=== PATIENT | female | born 1925 | race Caucasian/White ===

== ENCOUNTER 2016-10-10 11:57 | Inpatient (IN) | payer OTHER ==
[2016-10-09 22:29] VITALS: BP 114/63
[~2016-10-10] VITALS: Ht 147.3 cm; Wt 49.6 kg
[2016-10-10] MEDS ORDERED: PANTOPRAZOLE SODIUM 40 MG/10 ML VIAL IV STA (12:07)
[2016-10-10] MEDS ORDERED: SODIUM CHLORIDE 0.9% 500 ML IVB ONE (12:07)
[2016-10-10] MEDS ORDERED: MORPHINE SULFATE 4 MG/ML SYRG IV ONE (12:15)
[2016-10-10] MEDS ORDERED: ONDANSETRON HCL 4 MG/2 ML VIAL IV ONE (12:15)
[2016-10-10 13:24] LABS: Basophils # (auto) 0 uL; Eosinophils # (auto) 0 uL; Hematocrit 47.5 % (36.0-46.0); Hemoglobin 15.7 g/dL (12.2-16.2); Lymphocytes % (auto) 7.5 % (10.0-50.0); Mean Corpuscular Hemoglobin 31.8 pg (28.0-32.0); Mean Corpuscular Volume 96.1 fL (80.0-100.0); Mean Platelet Volume 7.5 fL (7.4-10.4); Monocytes # (auto) 0.8 uL; Monocytes % (auto) 6.1 % (0.0-12.0); Neutrophils % (auto) 86.4 % (37.0-80.0); Platelet Count (auto) 271 10^3/uL (140-450); White Blood Cell 12.8 10^3/uL (4.4-10.8)
[2016-10-10 13:47] LABS: Albumin 3.8 g/dL (3.4-5.0); Bilirubin, Total 0.9 mg/dL (0.2-1.0); Calcium 9.4 mg/dL (8.5-10.1); Magnesium 2.4 mg/dL (1.6-2.6); Potassium 4.2 mmol/L (3.5-5.1); Total Protein 7.4 g/dL (6.4-8.2)
[2016-10-10] MEDS ORDERED: PIPERACILLIN-TAZOB 3.375GM 100 ML IV ONE (14:00)
[2016-10-10] MEDS ORDERED: NITROGLYCERIN 0.4 MG SL TAB SL PRN (16:00)
[2016-10-10] MEDS: SODIUM CHLORIDE 0.9% 1,000 ML IV SCH (16:07)
[2016-10-10] MEDS: MORPHINE SULF INJ 2 MG/ML SYRINGE 1ML IV PRN ×2 (16:27→18:45)
[2016-10-10] MEDS: cefTRIAXone 1GM/50ML D5W 50 ML IV SCH (16:46)
[2016-10-10 17:28] LABS: Urine Bilirubin Negative (Negative); Urine Blood Negative /uL (Negative); Urine Color Yellow (Yellow); Urine Mucus FEW (None Seen); Urine Nitrite Negative (Negative); Urine RBC 1 /hpf (0 - 4); Urine Squamous Epithelial Cell FEW /hpf (<5); Urine Urobilinogen Normal (Negative); Urine pH 5.5 (5.0-8.0)
[2016-10-10 17:29] LABS: Urine Glucose 1+ mg/dL (Normal); Urine Ketone 2+ (Negative)
[2016-10-11 05:02] VITALS: BP 137/51
[2016-10-11] MEDS: SODIUM CHLORIDE 0.9% 1,000 ML IV SCH ×2 (05:20→18:34)
[2016-10-11 06:33] LABS: Basophils # (auto) 0 uL; Basophils % (auto) 0.3 % (0.0-2.0); Eosinophils # (auto) 0 uL; Eosinophils % (auto) 0.2 % (0.0-7.0); Hematocrit 42.2 % (36.0-46.0); Hemoglobin 13.8 g/dL (12.2-16.2); Lymphocytes # (auto) 1.4 uL; Lymphocytes % (auto) 12.8 % (10.0-50.0); Mean Corpuscular Hemoglobin 31.7 pg (28.0-32.0); Mean Corpuscular Hgb Conc. 32.8 g/dL (32.0-36.0); Mean Corpuscular Volume 96.6 fL (80.0-100.0); Mean Platelet Volume 7.3 fL (7.4-10.4); Monocytes # (auto) 0.9 uL; Monocytes % (auto) 8.3 % (0.0-12.0); Neutrophils # (auto) 8.4 uL; Neutrophils % (auto) 78.4 % (37.0-80.0); Platelet Count (auto) 261 10^3/uL (140-450); Red Cell Distribution Width 13.9 % (11.6-16.0); White Blood Cell 10.7 10^3/uL (4.4-10.8)
[2016-10-11 06:56] LABS: Albumin 3.3 g/dL (3.4-5.0); BUN/Creatinine Ratio 27.1; Calcium 8.6 mg/dL (8.5-10.1); Potassium 4.8 mmol/L (3.5-5.1)
[2016-10-11 06:59] LABS: Bilirubin, Total 0.5 mg/dL (0.2-1.0); Total Protein 6.6 g/dL (6.4-8.2)
[2016-10-11 09:00] VITALS: BP 140/59
[2016-10-11] MEDS: ONDANSETRON HCL 4 MG/2 ML VIAL IV PRN (09:47)
[2016-10-11] MEDS: MORPHINE SULF INJ 2 MG/ML SYRINGE 1ML IV PRN ×3 (09:47→21:21)
[2016-10-11] MEDS: cefTRIAXone 1GM/50ML D5W 50 ML IV SCH (09:51)
[2016-10-11 17:00] VITALS: BP 116/54
[2016-10-11] MEDS ORDERED: SIMV-8 PO (17:36)
[2016-10-11] MEDS ORDERED: GLIP-115 PO (17:36)
[2016-10-11 21:26] VITALS: BP 138/64
[2016-10-12 05:13] VITALS: BP 126/53
[2016-10-12 06:44] LABS: Basophils # (auto) 0 uL; Basophils % (auto) 0.2 % (0.0-2.0); Eosinophils # (auto) 0 uL; Hematocrit 39.5 % (36.0-46.0); Hemoglobin 12.8 g/dL (12.2-16.2); Lymphocytes # (auto) 1.1 uL; Mean Corpuscular Hemoglobin 31.6 pg (28.0-32.0); Mean Corpuscular Hgb Conc. 32.4 g/dL (32.0-36.0); Mean Corpuscular Volume 97.5 fL (80.0-100.0); Mean Platelet Volume 7.6 fL (7.4-10.4); Monocytes # (auto) 0.8 uL; Monocytes % (auto) 7.7 % (0.0-12.0); Neutrophils # (auto) 8.9 uL; Neutrophils % (auto) 82.1 % (37.0-80.0); Platelet Count (auto) 246 10^3/uL (140-450); Red Cell Distribution Width 13.8 % (11.6-16.0); White Blood Cell 10.9 10^3/uL (4.4-10.8)
[2016-10-12 07:20] LABS: BUN/Creatinine Ratio 46.7; Calcium 8.5 mg/dL (8.5-10.1); Potassium 3.7 mmol/L (3.5-5.1)
[2016-10-12] MEDS: SODIUM CHLORIDE 0.9% 1,000 ML IV SCH (08:00)
[2016-10-12 09:00] VITALS: BP 134/65
[2016-10-12] MEDS ORDERED: ALUM & MAG HYDROX-SIMETH LIQ(MAALOX) 30 ML PO ONE (09:30)
[2016-10-12] MEDS ORDERED: PANTOPRAZOLE SODIUM 40 MG/10 ML VIAL IV ONE (09:30)
[2016-10-12] MEDS ORDERED: GASTROGRAFIN 30 ML SOL ONE (09:40)
[2016-10-12] MEDS: cefTRIAXone 1GM/50ML D5W 50 ML IV SCH (10:05)
[2016-10-12] MEDS ORDERED: IOHEXOL 300 MG/ML 100ML BOTTLE IJ ONE (11:04)
[2016-10-12 13:00] VITALS: BP 140/62
[2016-10-12] MEDS: MORPHINE SULF INJ 2 MG/ML SYRINGE 1ML IV PRN (15:31)
[2016-10-12] MEDS ORDERED: ACETAMINOPHEN 500 MG TAB PO PRN (16:45)
[2016-10-12 17:00] VITALS: BP 131/59
[2016-10-12] MEDS: ONDANSETRON HCL 4 MG/2 ML VIAL IV PRN (18:09)
[2016-10-12 22:02] VITALS: BP 130/63
[2016-10-13 05:13] VITALS: BP 142/58
[2016-10-13 07:04] LABS: BUN/Creatinine Ratio 55.2; Calcium 8.6 mg/dL (8.5-10.1); Potassium 3.6 mmol/L (3.5-5.1)
[2016-10-13 08:41] VITALS: BP 137/62
[2016-10-13] MEDS ORDERED: PANTOPRAZOLE SODIUM 40 MG/10 ML VIAL IV ONE (09:30)
[2016-10-13 12:44] VITALS: BP 119/57
[2016-10-13] MEDS ORDERED: SODIUM CHLORIDE 0.9% 1,000 ML IV SCH (16:00)
[2016-10-13 17:28] VITALS: BP 150/55
== END 2016-10-13 19:08 | DRG 445 ==
LOC: EDBD 11:57 → ER 12:00 → TELE 12:01 → TELE-EAST 22:27 → EAST 10-13 09:15
PROVIDERS: ADMIT Internal Medicine; ATTEND Internal Medicine
DX: K80.10 Calculus of gallbladder with chronic cholecystitis without obstruction (principal); M48.56XA Collapsed vertebra, not elsewhere classified, lumbar region, initial encounter for fracture; E11.9 Type 2 diabetes mellitus without complications; F17.210 Nicotine dependence, cigarettes, uncomplicated; I10 Essential (primary) hypertension; E78.5 Hyperlipidemia, unspecified; K57.30 Diverticulosis of large intestine without perforation or abscess without bleeding
CPT/HCPCS: 36415; 71010; 74177; 76705; 80048; 80053; 81001; 82150; 83690; 83735; 84484; 85025; 86850; 86900; 86901; 93005; 93306; 96361; 96374; 96375; 96376; 97001; C9113; J0696; J2405; J2543

== ENCOUNTER 2016-11-03 11:19 | Inpatient (IN) | payer OTHER ==
[~2016-11-03] VITALS: Ht 147.3 cm; Wt 45.8 kg
[~2016-11-03 11:19] MED LIST: ATROPINE SULF 0.5 MG/5ML SYR IV ONE; EPINEPHrine HCL 1 MG/10 ML SYRG IV ONE; GLIP-115 PO; SIMV-8 PO; SODIUM BICARBONATE 8.4% INJ 50ML SYRINGE IV ONE
[2016-11-03 12:04] LABS: Hematocrit 45.4 % (36.0-46.0); Hemoglobin 15.4 g/dL (12.2-16.2); Mean Corpuscular Hemoglobin 32.2 pg (28.0-32.0); Mean Corpuscular Hgb Conc. 33.8 g/dL (32.0-36.0); Mean Platelet Volume 8.6 fL (7.4-10.4); Platelet Count (auto) 225 10^3/uL (140-450); SUSPECT VIEW TRANSMISSION; White Blood Cell 8.1 10^3/uL (4.4-10.8)
[2016-11-03 12:08] LABS: Promyelocytes % 0; Reactive Lymphocytes 0
[2016-11-03] MEDS ORDERED: PIPERACILLIN-TAZOB 2.25GM 50 ML IV ONE (12:15)
[2016-11-03 12:26] LABS: Metamyelocytes % 3; Myelocytes % 1; Platelet Estimate Adequate; RBC Morphology Normal
[2016-11-03 12:40] LABS: Albumin 2.5 g/dL (3.4-5.0); BUN/Creatinine Ratio 11.9; Bilirubin, Total 0.8 mg/dL (0.2-1.0); Calcium 8.8 mg/dL (8.5-10.1); Potassium 3.9 mmol/L (3.5-5.1); Total Protein 6.7 g/dL (6.4-8.2)
[2016-11-03] MEDS ORDERED: ACETAMINOPHEN 650 mg PER 20 mL UD PO ONE (13:00)
[2016-11-03] MEDS ORDERED: ACETAMINOPHEN 650 mg PER 20 mL UD ONE (13:06)
[2016-11-03] MEDS ORDERED: IPRATROPIUM BROM 0.5 MG/2.5ML INH SOL NEB PRN (13:30)
[2016-11-03] MEDS ORDERED: ALBUTEROL SULF 2.5 MG/0.5ML(0.5%) NEB SOLN NEB PRN (13:30)
[2016-11-03 13:31] LABS: Lactic Acid 6.8 mmol/L (0.4-2.0)
[2016-11-03 13:45] LABS: REFLEX LACTIC ACID YES OR NO YES
[2016-11-03] MEDS: SODIUM CHLORIDE 0.9% 1,000 ML IV ONE ×2 (14:00→14:04)
[2016-11-03] MEDS ORDERED: HEPARIN SODIUM (PORCINE) 5000 UNITS/ML 1ML VIAL SC SCH (14:15)
[2016-11-03] MEDS ORDERED: VANCOMYCIN PER PHARMACY 0 MG IV SCH (15:00)
[2016-11-03] MEDS ORDERED: SODIUM CHLORIDE 0.9% 1,000 ML IV ONE (15:00)
[2016-11-03] MEDS ORDERED: VANCOMYCIN 750 MG in D5W 5% 250 ML IV SCH (15:00)
[2016-11-03 15:27] LABS: Lactic Acid 6.5 mmol/L (0.4-2.0)
[2016-11-03 15:31] LABS: REFLEX LACTIC ACID YES OR NO NO
[2016-11-03] MEDS ORDERED: SUCCINYLCHOLINE CHLORIDE 20 MG/ML 10ML VIAL IV ONE ×2 (17:30→17:41)
[2016-11-03] MEDS ORDERED: ETOMIDATE (2MG/ML) 20ML VIAL IV ONE ×2 (17:30→17:41)
[2016-11-03] MEDS ORDERED: MIDAZOLAM DRIP 100 mg/100mL NS 100 ML IV ONE (17:42)
[2016-11-03] MEDS ORDERED: MIDAZOLAM DRIP 100 mg/100mL NS 100 ML IV SCH (17:45)
[2016-11-03 18:00] VITALS: BP 174/79
[2016-11-03 18:28] VITALS: BP 141/98
[2016-11-03 18:30] VITALS: BP 174/79
[2016-11-03] MEDS ORDERED: PROPOFOL 100 ML IV ONE (18:37)
[2016-11-03] MEDS ORDERED: NOREPINEPHRINE BITARTRATE 250 ML IV ONE (18:57)
[2016-11-03 19:00] VITALS: BP 39/27
[2016-11-03] MEDS ORDERED: PIPERACILLIN-TAZOB 3.375GM 100 ML IV ONE (19:00)
[2016-11-03] MEDS ORDERED: PROPOFOL 100 ML IV SCH (19:00)
[2016-11-03] MEDS ORDERED: PHENYLEPHRINE INJ 20 MG in SODIUM CHL 0.9% 250 ML IV SCH (20:00)
[2016-11-03] MEDS ORDERED: FUROSEMIDE 40 MG/4 ML VIAL ONE (20:10)
[2016-11-03] MEDS ORDERED: ROCURONIUM BROMIDE 1,000 MG in D5W 5% 150 ML IV SCH (20:10)
[2016-11-03] MEDS ORDERED: ROCURONIUM 10MG/ML 10ML VIAL IV ONE (20:15)
[2016-11-03] MEDS ORDERED: PANTOPRAZOLE SODIUM 40 MG/10 ML VIAL IV SCH (20:18)
[2016-11-03 20:41] VITALS: BP 88/55
[2016-11-03] MEDS ORDERED: FUROSEMIDE INJECTION 10 ML ONE ×2 (21:19→22:38)
[2016-11-03 22:09] VITALS: BP 77/34
[2016-11-04] MEDS ORDERED: ALBUTEROL SULF 2.5 MG/0.5ML(0.5%) NEB SOLN NEB SCH (02:00)
[2016-11-04] MEDS ORDERED: PIPERACILLIN-TAZOB 3.375GM 100 ML IV SCH (12:00)
== END 2016-11-04 00:05 | disposition expired | DRG 871 ==
LOC: EDBD 11:19 → ER 11:26 → TELE 11:27
PROVIDERS: ADMIT Internal Medicine; ATTEND Internal Medicine
PROC: 5A09357 Assistance with Respiratory Ventilation, Less than 24 Consecutive Hours, Continuous Positive Airway Pressure (ICD-10-PCS; principal; 2016-11-03)
PROC: 5A1935Z Respiratory Ventilation, Less than 24 Consecutive Hours (ICD-10-PCS; 2016-11-03)
PROC: 0BH17EZ Insertion of Endotracheal Airway into Trachea, Via Natural or Artificial Opening (ICD-10-PCS; 2016-11-03)
DX: A41.9 Sepsis, unspecified organism (principal); J18.9 Pneumonia, unspecified organism; J96.01 Acute respiratory failure with hypoxia; E11.9 Type 2 diabetes mellitus without complications; F17.210 Nicotine dependence, cigarettes, uncomplicated; I10 Essential (primary) hypertension; I70.0 Atherosclerosis of aorta; Y95 Nosocomial condition; E78.5 Hyperlipidemia, unspecified; Z66 Do not resuscitate
CPT/HCPCS: 31500; 36415; 36556; 36600; 51702; 71010; 71250; 80053; 82805; 82962; 83605; 83880; 84484; 85007; 85027; 87040; 93005; 94002; 94660; 96365; 96367; 96372; 99291; J0330; J0461; J2543; J2704; J3490; J7060